=== PATIENT | male | born 1940 | race Caucasian/White ===

== ENCOUNTER 2017-01-28 06:14 | Day surgery (SDC) | payer MEDICARE, BC ==
[~2017-01-28] VITALS: Ht 175.3 cm; Wt 104.5 kg
[2017-01-28] VITALS (7 sets, daily range): BP systolic 104–152; BP diastolic 63–93; PULSE 66–74; TEMP 97.6–98
[2017-01-28 06:50] LABS: HEMATOCRIT 50.6 % (42.0-52.0); HEMOGLOBIN 17.1 g/dl (13.5-18.0); MEAN CELL VOLUME 93 fl (80.0-100.0); MEAN CORPUSCULAR HEMOGLOBIN 31 pg (27.0-31.0); MEAN CORPUSCULAR HGB CONC 34 g/dl (33.0-37.0); PLATELET COUNT 149 K/mm3 (130-400); RED BLOOD COUNT 5.46 M/mm3 (4.20-5.60); REDCELL DISTRIBUTION WIDTH-CV 14.5 % (11.5-14.5); WHITE BLOOD COUNT 8.1 K/mm3 (4.8-10.8)
[2017-01-28 06:54] LABS: INR 1.1 (0.8-3.0); PROTHROMBIN TIME 12.7 SECONDS (9.7-12.8)
[2017-01-28 07:01] LABS: CALCIUM 9.3 mg/dL (8.4-10.2); CREATININE, serum 1.37 mg/dL (0.66-1.25); POTASSIUM 4.1 mmol/L (3.4-5.0)
[2017-01-28] MEDS ORDERED: COUMADIN4 MG PO (07:17)
[2017-01-28] MEDS ORDERED: LASIX 40MG TABL40 MG PO (07:18)
[2017-01-28] MEDS ORDERED: AMARYL 2MG T2 MG/TAB PO (07:19)
[2017-01-28] MEDS ORDERED: PRINIVIL10 MG PO (07:20)
[2017-01-28] MEDS ORDERED: GLUCOPHAGE500 MG/TAB PO (07:21)
[2017-01-28] MEDS ORDERED: TOPROL XL 25MG25 MG PO (07:23)
[2017-01-28] MEDS ORDERED: PLAVIX 75MG TAB75 MG PO (07:27)
[2017-01-28] MEDS ORDERED: NITROSTAT0.4 MG/TAB SL (07:28)
[2017-01-28] MEDS ORDERED: ZOCOR 80MG80 MG PO (07:29)
[2017-01-28] MEDS ORDERED: ASPIRIN 81M81 MG/TA2 PO (07:31)
[2017-01-28] MEDS ORDERED: METAMUCIL3.4 GM/DOS PO (07:32)
[2017-01-28] MEDS ORDERED: TYLENOL 325MG325 MG PO (07:33)
[2017-01-29 00:11] VITALS: BP 153/93; PULSE 70; TEMP 98
[2017-01-29 04:15] VITALS: BP 149/86; PULSE 69; TEMP 98
[2017-01-29 07:47] LABS: ADD PATHOLOGY DIFF REVIEW NO
[2017-01-29 07:53] LABS: HEMATOCRIT 47.7 % (42.0-52.0); HEMOGLOBIN 15.4 g/dl (13.5-18.0); MEAN CELL VOLUME 94 fl (80.0-100.0); MEAN CORPUSCULAR HEMOGLOBIN 30 pg (27.0-31.0); MEAN CORPUSCULAR HGB CONC 32 g/dl (33.0-37.0); MEAN PLATELET VOLUME 9.1 fl (7.4-10.4); PLATELET COUNT 130 K/mm3 (130-400); RED BLOOD COUNT 5.07 M/mm3 (4.20-5.60); REDCELL DISTRIBUTION WIDTH-CV 14.6 % (11.5-14.5); WHITE BLOOD COUNT 6.5 K/mm3 (4.8-10.8)
[2017-01-29 08:05] LABS: CALCIUM 8.5 mg/dL (8.4-10.2); CREATININE, serum 1.06 mg/dL (0.66-1.25); INR 1.1 (0.8-3.0); POTASSIUM 4.3 mmol/L (3.4-5.0)
[2017-01-29 08:06] VITALS: BP 153/93; PULSE 70; TEMP 99.2
[2017-01-29 11:59] VITALS: BP 132/83; PULSE 87; TEMP 97.9
[2017-01-29 13:56] LABS: BAND 3 % (0-10); EOSINOPHIL 2 % (0-4); NEUTROPHILS 76 % (42.0-75.2); TOTAL CELLS COUNTED 100
[2017-01-29 13:57] LABS: ANISOCYTOSIS 1+; PLATELET ESTIMATE NORMAL (NORMAL)
[2017-01-29] MEDS ORDERED: CORDARONE200 MG/TAB PO (14:18)
[2017-01-29] MEDS ORDERED: CEPHALEXIN500 M1 PO (14:19)
== END 2017-01-29 15:18 | disposition home or self-care (01) ==
LOC: COL.CAR 06:14 → MEDICAL 10:12 → COL.CAR 01-29 15:18
PROVIDERS: Internal Medicine Cardiovascular Disease
DX: I25.5 Ischemic cardiomyopathy (principal); E11.9 Type 2 diabetes mellitus without complications; J44.9 Chronic obstructive pulmonary disease, unspecified; I48.2 Chronic atrial fibrillation; I25.10 Atherosclerotic heart disease of native coronary artery without angina pectoris; Z95.5 Presence of coronary angioplasty implant and graft
CPT/HCPCS: OP; C1769; C1892; C1894; C1898; J0690; J2250; J3010; J7030

== ENCOUNTER 2018-02-13 11:28 | Day surgery (SDC) | payer MEDICARE, BC ==
[~2018-02-13] VITALS: Ht 175.3 cm; Wt 103.9 kg
[~2018-02-13 11:28] MED LIST: AMARYL 2MG T2 MG/TAB PO; ASPIRIN 81M81 MG/TA2 PO; CEPHALEXIN500 M1 PO; CORDARONE200 MG/TAB PO; COUMADIN4 MG PO; GLUCOPHAGE500 MG/TAB PO; LASIX 40MG TABL40 MG PO; METAMUCIL3.4 GM/DOS PO; NITROSTAT0.4 MG/TAB SL; PLAVIX 75MG TAB75 MG PO; PRINIVIL10 MG PO; TOPROL XL 25MG25 MG PO; TYLENOL 325MG325 MG PO; ZOCOR 80MG80 MG PO
[2018-02-13 12:20] LABS: HEMATOCRIT 46.4 % (42.0-52.0); MEAN CELL VOLUME 92 fl (80.0-100.0); MEAN CORPUSCULAR HEMOGLOBIN 30 pg (27.0-31.0); MEAN CORPUSCULAR HGB CONC 32 g/dl (33.0-37.0); MEAN PLATELET VOLUME 8.3 fl (7.4-10.4); PLATELET COUNT 228 K/mm3 (130-400); RED BLOOD COUNT 5.02 M/mm3 (4.20-5.60); REDCELL DISTRIBUTION WIDTH-CV 15.6 % (11.5-14.5)
[2018-02-13 12:27] LABS: INR 2.3 (0.8-3.0); PROTHROMBIN TIME 26.6 SECONDS (9.7-12.8)
[2018-02-13 12:30] LABS: CREATININE, serum 1.45 mg/dL (0.66-1.25); POTASSIUM 4.8 mmol/L (3.4-5.0)
[2018-02-13 12:46] VITALS: BP 147/97; PULSE 70; TEMP 97.8
[2018-02-13 13:51] VITALS: BP 125/83; PULSE 73; TEMP 98
[2018-02-13 14:06] VITALS: BP 120/84; PULSE 71; TEMP 98
[2018-02-13 14:21] VITALS: BP 122/85; PULSE 69; TEMP 98
[2018-02-13 14:36] VITALS: BP 127/83; PULSE 68; TEMP 98
[2018-02-13 15:05] VITALS: BP 126/78; PULSE 72; TEMP 98
== END 2018-02-13 15:08 | disposition home or self-care (01) ==
LOC: COL.CAR 11:28
PROVIDERS: Internal Medicine Cardiovascular Disease
DX: I48.91 Unspecified atrial fibrillation (principal); Z79.01 Long term (current) use of anticoagulants; Z79.899 Other long term (current) drug therapy; I25.10 Atherosclerotic heart disease of native coronary artery without angina pectoris; E11.22 Type 2 diabetes mellitus with diabetic chronic kidney disease; I08.0 Rheumatic disorders of both mitral and aortic valves; Z95.5 Presence of coronary angioplasty implant and graft; Z95.0 Presence of cardiac pacemaker; N18.3 Chronic kidney disease, stage 3 (moderate)
CPT/HCPCS: G9654; J2704

== ENCOUNTER 2021-02-14 08:25 | Day surgery (SDC) | payer MEDICARE, BC ==
[~2021-02-14] VITALS: Ht 175.4 cm; Wt 99.5 kg
[2021-02-14] VITALS (9 sets, daily range): BP systolic 111–134; BP diastolic 80–97; PULSE 63–75; TEMP 98
[~2021-02-14 08:25] MED LIST changes: +LIPITOR 40MG TA40 MG PO; -ZOCOR 80MG80 MG PO
[2021-02-14 09:44] LABS: HEMATOCRIT 50.4 % (42.0-52.0); HEMOGLOBIN 16.1 g/dl (13.5-18.0); MEAN CELL VOLUME 94 fl (80.0-100.0); MEAN CORPUSCULAR HEMOGLOBIN 30 pg (27.0-31.0); MEAN CORPUSCULAR HGB CONC 32 g/dl (33.0-37.0); MEAN PLATELET VOLUME 8.7 fl (7.4-10.4); PLATELET COUNT 196 K/mm3 (130-400); RED BLOOD COUNT 5.34 M/mm3 (4.20-5.60); REDCELL DISTRIBUTION WIDTH-CV 15.2 % (11.5-14.5)
[2021-02-14 10:02] LABS: CALCIUM 8.5 mg/dL (8.4-10.2); CREATININE, serum 1.38 (0.66-1.25)
[2021-02-14] MEDS ORDERED: ALDACTONE 25MG25 M1 PO (10:20)
[2021-02-14] MEDS ORDERED: COUMADIN 6MG6 MG/TAB PO (10:25)
[2021-02-14] MEDS ORDERED: ZEBETA 5MG5 MG PO (10:26)
[2021-02-14] MEDS ORDERED: PEPCID AC 10MG10 MG PO (10:26)
[2021-02-14] MEDS ORDERED: SINGULAIR 110 MG/TAB PO (10:27)
--- NOTE | 2021-02-14 12:24 | NUR ---
Pt to procedure at this time.
--- NOTE | 2021-02-14 13:41 | NUR ---
Pt returned from procedure,report from GODFREY James.
[2021-02-14] MEDS ORDERED: CEPHALEXIN500 M1 PO (13:42)
--- NOTE | 2021-02-14 15:45 | NUR ---
Discharge instructions given to pt.Pt verbalizes understanding.INT removed,catheter tip intact.Pt escorted out via wheelchair by this nurse.
== END 2021-02-14 16:42 | disposition home or self-care (01) ==
LOC: COL.CAR 08:25
PROVIDERS: Internal Medicine Cardiovascular Disease
DX: Z45.02 Encounter for adjustment and management of automatic implantable cardiac defibrillator (principal); I42.0 Dilated cardiomyopathy; I48.20 Chronic atrial fibrillation, unspecified; I25.10 Atherosclerotic heart disease of native coronary artery without angina pectoris; E78.5 Hyperlipidemia, unspecified; I71.4 Abdominal aortic aneurysm, without rupture; E11.22 Type 2 diabetes mellitus with diabetic chronic kidney disease; N18.30 Chronic kidney disease, stage 3 unspecified; J44.9 Chronic obstructive pulmonary disease, unspecified; Z20.822 Contact with and (suspected) exposure to COVID-19; Z98.890 Other specified postprocedural states
CPT/HCPCS: C1882; J0690; J2250; J3010; J7030